=== PATIENT | male | born 1945 | race Caucasian/White ===

== ENCOUNTER → 2016-11-20 | Outpatient (CLI) | payer MEDICARE ==
[~2016-11-20] MED LIST: ALBU2.5V4 IN; Azithromycin PO; CEFD300C PO; PRD20T PO
--- OUTSIDE RECORDS SUMMARY | 2016-11-20 09:53 | XMS REPORT | Continuity of Care Document ---
Author Author [facility] Organization [facility] Address Unknown Phone Unavailable Care Team Providers Care Peer Specialist Name Role Phone NO, LOCAL PHYSICIAN PCP Unavailable Insurance Providers Payer Name Policy Number Subscriber Name Relationship s Medicare [id number] Ammy Gonsales 19 Self / Same As Patient Advance Directives Directive Response Recorded Date/Time Advance Directives No 11/08/14 3:19pm Health Care Power of Net Web Developer No 11/08/14 3:19pm Organ Donor Yes 11/08/14 3:19pm Resuscitation Status DNR-Pt Request 11/08/14 3:19pm Chief Complaint and Reason for Visit Chief Complaint HYPOXIA,PNEUMONITIS Reason for Visit Chronic obstructive airway disease Problems Medical Problems Problem Onset Date Status Chronic obstructive airway disease 11/10/2014 Active Medications Medication Dose Route Sig Days/Qty Instructions Order Date Discontinued Date Status [Azithromycin] 500 Mg PO DAILY 5 Qty 11/10/14 Active Cefdinir 300 Mg PO TWICE A DAY 14 Qty 11/10/14 Active Prednisone 20 Mg PO TWICE A DAY 14 Qty 11/10/14 Active Albuterol Sulfate 0.083 % IN EVERY 4HRS PRN SHORTNESS OF BREATH 50 Qty 11/10/14 Active Social History Social History Problem Response Recorded Date/Time Alcohol Use Denies Use 11/08/2014 3:13pm Recreational Drug Use No 11/08/2014 3:13pm Recent Foreign Travel No 11/08/2014 3:13pm Recent Infectious Disease Exposure No 11/08/2014 3:13pm Hospitalization with Isolation Denies 11/10/2014 1:02pm Sexually Transmitted Disease No 11/08/2014 3:13pm Smoking Status Former Smoker 11/08/2014 3:12pm Query Response Start Date Stop Date Smoking Status Former Smoker 10/08/1997 Hospital Discharge Instructions Patient Instructions Physician Instructions New, Converted or Re-Newed RX: Call to Patients Pharmacy Plan of Care/Instructions/FU: Fwup 1week Activity as Tolerated: Yes Discharge Diet: Low Sodium Diet Plan of Care Discharge Date 11/10/14 9:34am Disposition 30 STILL A PATIENT Instructions/Education Provided Bacterial Pneumonia (GEN) Reactive Airways Disease (GEN) Forms Provided PDI Medical Prescriptions See Medications Section Referrals (Other Speciality) Reason(s) for Referral: Chronic obstructive airway disease (Unspecified) Reason(s) for Referral: follow-up with Dr. Glynn on November 16 2014 at 2:[address] Glynn's office # [phone] Functional Status Query Response Date Recorded Comprehension Ability Understands Concepts November 09, 2014 8:10pm Allergies, Adverse Reactions, Alerts Allergen Type Severity Reaction Status Last Updated No Known Drug Allergies Active 11/08/14 Immunizations Name Given Type influenza, split (incl. purified surface antigen) 11/09/14 Administered pneumococcal polysaccharide PPV23 11/09/14 Administered influenza, split (incl. purified surface antigen) 11/09/14 Administered pneumococcal polysaccharide PPV23 11/09/14 Administered Vital Signs Acute Vital Signs Vital Response Date/Time Temperature (Fahrenheit) 97.9 degrees F (97.6 - 99.5) Temperature (Calculated Celsius) 36.09818 degrees C (36.4 - 37.5) Temperature Source Tympanic Pulse Rate (adult) 63 bpm (60 - 90) Respiratory Rate 20 bpm (12 - 24) O2 Sat by Pulse Oximetry 94 % (88 - 100) Blood Pressure 149/67 mm Hg Pain Pain Intensity 0 Height (Feet) 6 feet Height (Inches) 0.00 inches Height (Calculated Centimeters) 182.537589 cm Weight (Pounds) 203 pounds Weight (Ounces) 1.6 oz Weight (Calculated Grams) 26025.611 gm Weight (Calculated Kilograms) 92.607852 kilograms Calculated BMI 27.53 Results Laboratory Results Test Name Result Units Flags Reference Collection Date/Time Result Date/ Time Comments White Blood Count 9.4 10^3/uL 4.3-11.0 11/09/2014 5:11/09/2014 6: 14am Red Blood Count 4.74 10^6/uL 4.35-5.85 11/09/2014 5:11/09/2014 6: 14am Hemoglobin 13.9 G/DL 13.3-17.7 11/09/2014 5:11/09/2014 6:14am Hematocrit 42 % 40-54 11/09/2014 5:11/09/2014 6:14am Mean Corpuscular Volume 88 FL 80-99 11/09/2014 5:11/09/2014 6: 14am Mean Corpuscular Hemoglobin 29 PG 25-34 11/09/2014 5:11/09/2014 6: 14am Mean Corpuscular Hemoglobin Concent 33 G/DL 32-36 11/09/2014 5:11/2014 6:14am Red Cell Distribution Width 14.2 % 10.0-14.5 11/09/2014 5:2014 6:14am Platelet Count 222 10^3/uL 130-400 11/09/2014 5:11/09/2014 6:14am Mean Platelet Volume 10.2 FL 7.4-10.4 11/09/2014 5:11/09/2014 6: 14am Neutrophils (%) (Auto) 93 % H 42-75 11/09/2014 5:11/09/2014 6:14am Lymphocytes (%) (Auto) 4 % L 12-44 11/09/2014 5:11/09/2014 6:14am Monocytes (%) (Auto) 2 % 0-12 11/09/2014 5:11/09/2014 6:14am Eosinophils (%) (Auto) 0 % 0-10 11/09/2014 5:11/09/2014 6:14am Basophils (%) (Auto) 0 % 0-10 11/09/2014 5:11/09/2014 6:14am Neutrophils # (Auto) 8.8 X 10^3 H 1.8-7.8 11/09/2014 5:11/09/2014 6: 14am Lymphocytes # (Auto) 0.4 X 10^3 L 1.0-4.0 11/09/2014 5:31am 11/09/2014 6: 14am Monocytes # (Auto) 0.2 X 10^3 0.0-1.0 11/09/2014 5:31am 11/09/2014 6: 14am Eosinophils # (Auto) 0.0 10^3/uL 0.0-0.3 11/09/2014 5:31am 11/09/2014 6 :14am Basophils # (Auto) 0.0 10^3/uL 0.0-0.1 11/09/2014 5:31am 11/09/2014 6: 14am Neutrophils % (Manual) 74 % 11/08/2014 7:35am 11/08/2014 8:09am Band Neutrophils 1 % 11/08/2014 7:35am 11/08/2014 8:09am Lymphocytes % (Manual) 5 % 11/08/2014 7:35am 11/08/2014 8:09am Monocytes % (Manual) 16 % 11/08/2014 7:35am 11/08/2014 8:09am Eosinophils % (Manual) 4 % 11/08/2014 7:35am 11/08/2014 8:09am Basophils % (Manual) 0 % 11/08/2014 7:35am 11/08/2014 8:09am Blood Morphology Comment NORMAL 11/08/2014 7:35am 11/08/2014 8: 09am Sodium Level 138 MMOL/L 135-145 11/09/2014 5:31am 11/09/2014 6:32am Potassium Level 4.3 MMOL/L 3.6-5.0 11/09/2014 5:31am 11/09/2014 6:32am Chloride Level 108 MMOL/L H 98-107 11/09/2014 5:31am 11/09/2014 6:32am Carbon Dioxide Level 22 MMOL/L 21-32 11/09/2014 5:31am 11/09/2014 6: 32am Blood Urea Nitrogen 12 MG/DL 7-18 11/09/2014 5:31am 11/09/2014 6:32am Creatinine 0.75 MG/DL 0.60-1.30 11/09/2014 5:31am 11/09/2014 6:32am BUN/Creatinine Ratio 16 11/09/2014 5:31am 11/09/2014 6:32am Estimat Glomerular Filtration Rate > 60 11/09/2014 5:31am 2014 6:32am GFR INTERPRETIVE DATA UNITS FOR ESTIMATED GFR (eGFR): mL/min/1.73 M2 REFERENCE RANGE FOR ESTIMATED GFR (eGFR) eGFR NORMAL eGFR >60 MODERATELY DECREASED eGFR 30-59 SEVERLY DECREASED eGFR 15-29 KIDNEY FAILURE <15 (OR DIALYSIS) Glucose Level 173 MG/DL H 70-105 11/09/2014 5:31am 11/09/2014 6:32am Calcium Level 9.3 MG/DL 8.5-10.1 11/09/2014 5:31am 11/09/2014 6:32am Total Bilirubin 0.6 MG/DL 0.1-1.0 11/09/2014 5:31am 11/09/2014 6:32am Alkaline Phosphatase 66 U/L 40-136 11/09/2014 5:31am 11/09/2014 6:32am Aspartate Amino Transf (AST/SGOT) 15 U/L 5-34 11/09/2014 5:31am 2014 6:32am Alanine Aminotransferase (ALT/SGPT) 11 U/L 0-55 11/09/2014 5:31am 11/09 6:32am Troponin I < 0.30 NG/ML <0.30 11/08/2014 2:08pm 11/08/2014 2:35pm Troponin I < 0.30 NG/ML <0.30 11/08/2014 8:18pm 11/08/2014 8:51pm Total Protein 6.3 G/DL L 6.4-8.2 11/09/2014 5:31am 11/09/2014 6:32am Albumin 3.6 G/DL 3.2-4.5 11/09/2014 5:31am 11/09/2014 6:32am Procedures Procedure Status Date Provider(s) Tracing only of electrocardiogram completed 11/08/14 EVA GLYNN DO Tracing only of electrocardiogram completed 11/10/14 EVA GLYNN DO Encounters Encounter Location Date/Time Discharged Inpatient Via [facility] 11/08/14 1:52pm Recent Diagnosis Chronic obstructive airway disease
--- NOTE | 2016-11-20 10:48 | Diagnostic Imaging Report ---
CLINICAL INDICATION: Shortness of air for past month. Patient with cough and dyspnea. EXAM: Chest x-ray PA and lateral views. COMPARISONS: Chest x-ray dated 11/08/2014. FINDINGS: Likely external chest soft tissue shadow overlying the right lower lung field region. LUNGS/ PLEURA: Lungs are clear. There is no lung consolidation seen. There is no pneumothorax. There is no pleural effusion. MEDIASTINUM: Unremarkable. PULMONARY VASCULATURE: Unremarkable. HEART: Unremarkable. BONES/ EXTRATHORACIC SOFT TISSUE: There are hypertrophic spurs seen involving the thoracic spine. IMPRESSION: There is no radiographic evidence of acute cardiopulmonary process. Dictated by: Dictated on workstation # [id number]
== END ==
LOC: RAD 09:49
PROVIDERS: ATTEND Family Medicine
DX: R05 Cough (principal); R06.00 Dyspnea, unspecified
CPT/HCPCS: 71020

== ENCOUNTER → 2018-12-16 | Outpatient (CLI) | payer MEDICARE ==
--- NOTE | 2018-12-16 12:42 | Diagnostic Imaging Report ---
INDICATION: Back pain. 3 views were obtained Findings: The alignment of lumbar spine is normal. The vertebral body heights are well-maintained. There is no spondylolysis or spondylolisthesis. No fractures are identified. There is multilevel degenerative disc disease with prominent osteophytes anteriorly. IMPRESSION: Diffuse lumbar spondylosis and multilevel degenerative disc disease without acute fracture or traumatic subluxation. Dictated by: Dictated on workstation # [id number]
== END ==
LOC: RAD 11:18
PROVIDERS: ATTEND Family Medicine
DX: M47.816 Spondylosis without myelopathy or radiculopathy, lumbar region (principal); M51.36 Other intervertebral disc degeneration, lumbar region
CPT/HCPCS: 72100

== ENCOUNTER → 2019-12-23 | Outpatient (CLI) | payer MEDICARE ==
--- NOTE | 2019-12-23 12:40 | Diagnostic Imaging Report ---
PA and lateral chest at 11:06. Indication: Cough The heart size is within normal limits and stable compared to 11/20/2016. The lungs are clear. There is no evidence for failure, pneumonia or for pleural effusion. The mediastinum is not widened. The osseous structures are intact. Impression: There is no evidence for active disease. Dictated by: Dictated on workstation # [id number]
== END ==
LOC: RAD 10:14
PROVIDERS: ATTEND Family Medicine
DX: R05 Cough (principal)
CPT/HCPCS: 71046